=== PATIENT | female | born 1995 ===

== ENCOUNTER 2016-12-22 18:25 | Inpatient (IN) | payer OTHER ==
[2016-12-22] MEDS ORDERED: OXYTOCIN/RINGERS LACTATE 1,000 ML IV PRN (18:57)
[2016-12-22] MEDS ORDERED: TERBUTALINE SULFATE 1 MG/ML VIAL IV PRN (18:57)
[2016-12-22] MEDS ORDERED: LR 1,000 ML IV PRN (18:57)
[2016-12-22 19:32] LABS: % IMMATURE GRANULYOCYTES 0.8 % (0.0-1.1); ABSOLUTE IMMATURE GRANULOCYTES 0.14 10^3/uL (0.00-0.10); ADD DIFF? NO; ADD MORPH? NO; ADD SCAN? NO; ATYPICAL LYMPHOCYTE FLAG 10 (0-99); FRAGMENT RBC FLAG 0 (0-99); HEMATOCRIT 41.5 % (38.0-47.0); HEMOGLOBIN 14.5 g/dL (12.6-16.3); LEFT SHIFT FLG 0 (0-99); LIPEMIA HEMOLYSIS FLAG 90 (0-99); MEAN CELL HEMOGLOBIN 31.1 pg (27.9-34.1); MEAN CELL HEMOGLOBIN CONCENTR. 34.9 g/dL (32.4-36.7); MEAN CELL VOLUME 89.1 fL (81.5-99.8); MEAN PLATELET VOLUME 9.9 fL (8.7-11.7); PLATELET CLUMPS FLAG 0 (0-99); PLATELET COUNT 205 10^3/uL (150-400); RED BLOOD CELL COUNT 4.66 10^6/uL (4.18-5.33); RED CELL DISTRIBUTION WIDTH 13.4 % (11.5-15.2)
[2016-12-22] MEDS ORDERED: AMMONIA AROMATIC 1 EACH AMP IH ONE (20:09)
[2016-12-22] MEDS ORDERED: LIDOCAINE 1% 30 ML SDV ONE (20:09)
[2016-12-22] MEDS ORDERED: TERBUTALINE SULFATE 1 MG/ML VIAL ONE (20:09)
[2016-12-22] MEDS ORDERED: OXYTOCIN 10 UNIT/ML VIAL ONE (20:09)
[2016-12-22] MEDS ORDERED: MISOPROSTOL 200 MCG TAB ONE (20:10)
[2016-12-22] MEDS ORDERED: HYDROCODONE/APAP 5/325 TAB PO PRN (21:45)
[2016-12-22] MEDS ORDERED: HYDROCORTISONE 0.5% CREAM TP PRN (21:45)
[2016-12-22] MEDS ORDERED: SIMETHICONE 80 MG TAB CHEW PO PRN (21:45)
--- NOTE | 2016-12-22 21:49 | OBPROC ---
- Labor and Delivery Onset of Contractions Date: 12/22/16 Onset of Contractions Time: 16:00 Onset of Contractions Type: Spontaneous Rupture of Membranes Date: 12/22/16 Rupture of Membranes Time: 21:10 Rupture of Membranes Type: Artificial Amniotic Fluid Color: Clear Dilation Complete Time: 21:10 Delivery Type: Spontaneous Placenta Delivery Date: 12/22/16 Placenta Delivery Time: 21:30 Episiotomy/Laceration: Midline Repair: 3-0, Vicryl (under local - 1% Lidocaine) EBL: 350 cc Complications: Shoulder Dystocia (Mild; less than 1 min; relieved with McRobert' s maneuver and suprapubic pressure) - Medications Labor Augmentation/Induction Meds Used: None Anesthesia: Local (Specify) (1% Lidocaine) - [place] Info Infant A Delivery Date: 12/22/16 Delivery Time: 21:20 Sex of Infant: Female Score (1 Min): 8 Score (5 Min): 9
[2016-12-22] MEDS: IBUPROFEN 600 MG TAB PO PRN (21:50)
--- NOTE | 2016-12-22 22:31 | GHP ---
DATE OF ADMISSION: 12/22/2016 ADMITTING DIAGNOSES: 1. Intrauterine at 39 weeks. 2. Active labor. HISTORY OF PRESENT ILLNESS: Patient is a 21-year-old, 2, para 1-0-0-1 at 39 weeks who presented today in the office for a routine visit. She was josef every 10-15 minutes, was found to be 4-5 cm dilated with a bulging bag. She then presented to L&D later this evening with contractions closer every 5 minutes in active labor at 7 cm. Pt presented to [facility] as a late transfer at 35 weeks. ISADORA is 12/29/2016 by last menstrual period 03/24/2016 confirmed by first-trimester ultrasound. The patient did have a history of bleeding in the 1st trimester, and did receive RhoGAM at 14 weeks and at 28 weeks. The patient did accept Trio screen and it was negative. Patient did receive Tdap during the . GBS culture negative. The patient is anemic takes iron. Has a history of depression and anxiety on no medications. PAST OB HISTORY: 2014 delivered a viable male infant at 39 weeks via vaginal delivery, weighing 6 pounds 10 ounces. The patient was induced. No complications. UPTWISTER TENDER HISTORY: Age of menarche 12. Cycles are regular every 28 days lasting for 6 days. Last menstrual period 03/24/2016. Had a positive test early April 2016. The patient denies a history of abnormal Pap smears or any exposure to sexually transmitted diseases. PAST MEDICAL HISTORY: Anxiety, depression have not had any issues for the past 4 years. PAST SURGICAL HISTORY: [place] teeth extraction 2010, gallbladder removal in 2014. MEDICATIONS: Include vitamins. ALLERGIES: Patient has no known drug allergies. FAMILY HISTORY: Noncontributory. LABS: Patient is O negative, antibody negative. Did receive RhoGAM at 14 weeks and at 28 weeks. HIV negative. Hepatitis B surface antigen negative, RPR nonreactive, rubella immune. Hematocrit in the 3rd trimester was 35. GBS is negative. Trio screen was negative. PHYSICAL EXAMINATION: GENERAL APPEARANCE: The patient is a well-nourished, well-developed female, alert and oriented x3. Mild distress secondary to contractions. CARDIOVASCULAR: Regular rate and rhythm. LUNGS: Clear to auscultation. ABDOMEN: Gravid, soft, nontender. EXTREMITIES: Normal to inspection without calf tenderness or edema. PELVIC: She was found to be 7 cm and bulging. [place] is category 1 strip. baseline 140 beats per minute. Positive accelerations. No decelerations. Moderate variability. ASSESSMENT: Patient is a 21-year-old, 2, para 1-0-0-1 at 39 weeks with an estimated due date 12/29/2016 who presents in active labor. PLAN: 1. Admit to Labor and Delivery for expectant management. 2. GBS is negative. No prophylactic antibiotics needed. 3. Anticipate normal vaginal delivery. /[id number]/MODL MTDD
[2016-12-22 23:06] LABS: ABSOLUTE IMMATURE GRANULOCYTES 0.19 10^3/uL (0.00-0.10); ADD DIFF? NO; ADD MORPH? NO; ADD SCAN? NO; ATYPICAL LYMPHOCYTE FLAG 0 (0-99); FRAGMENT RBC FLAG 0 (0-99); HEMATOCRIT 40.1 % (38.0-47.0); LEFT SHIFT FLG 0 (0-99); LIPEMIA HEMOLYSIS FLAG 90 (0-99); MEAN CELL HEMOGLOBIN CONCENTR. 34.9 g/dL (32.4-36.7); MEAN CELL VOLUME 88.9 fL (81.5-99.8); MEAN PLATELET VOLUME 10.4 fL (8.7-11.7); PLATELET CLUMPS FLAG 10 (0-99); PLATELET COUNT 177 10^3/uL (150-400); RED BLOOD CELL COUNT 4.51 10^6/uL (4.18-5.33); RED CELL DISTRIBUTION WIDTH 13.3 % (11.5-15.2)
[2016-12-22 23:16] LABS: ALANINE AMINOTRANSFERASE 28 IU/L (9-52); ASPARTATE AMINOTRANSFERASE 27 IU/L (14-46); BILIRUBIN,TOTAL 0.4 mg/dL (0.1-1.4); BILIRUBIN-CONJUGATED 0.2 mg/dL (0.0-0.5); BILIRUBIN-UNCONJUGATED 0.2 mg/dL (0.0-1.1); CREATININE 0.7 mg/dL (0.6-1.0); GLOMERULAR FILTRATION RATE > 60; LACTATE DEHYDROGENASE 520 IU/L (313-618); URIC ACID 4.2 mg/dL (2.5-6.8)
[2016-12-23] MEDS: IBUPROFEN 600 MG TAB PO PRN ×4 (03:41→22:06)
[2016-12-23] MEDS: DOCUSATE SODIUM 100 MG CAP PO PRN ×2 (09:56→22:06)
--- NOTE | 2016-12-23 17:41 | SOAPPROG ---
SOAP Progress Note Assessment/Plan: Assessment: pod# 1 s/p breast feeding uncomplicated post course rh negative Plan: routine post care rhogam if indicated 12/23/16 17:40 Subjective: patient is doing great! pain is well controlled. normal lochia. breast feeding is going well. denies headache and changes in vision. no issues. Objective: Vital Signs Temp Pulse Resp BP Pulse Ox 36.8 C 70 16 118/74 96 12/23/16 08:45 12/23/16 08:45 12/23/16 08:45 12/23/16 08:45 12/23/16 08:45 Laboratory Results 12/22/16 21:17 12/22/16 21:17 12/22/16 12/23/16 12/24/16 05:59 05:59 05:59 Output Total 350 Balance -350 Physical Exam - Physical Exam General Appearance: WD/WN, alert, no apparent distress Neck: non-tender, full range of motion Respiratory: chest non-tender, lungs clear, normal breath sounds Cardiac/Chest: normal peripheral pulses, regular rate, rhythm Abdomen: normal bowel sounds, non-tender, soft, other (fundus firm and non tender) Skin: normal color, warm/dry Extremities: normal range of motion, non-tender, normal inspection, normal capillary refill Neuro/Psych: no motor/sensory deficits, alert, normal mood/affect, oriented x 3 ICD10 Worksheet Patient Problems: Problems Problem Status Onset Delivery normal Acute
[2016-12-24] MEDS: IBUPROFEN 600 MG TAB PO PRN ×2 (04:21→10:38)
--- NOTE | 2016-12-24 09:41 | SOAPPROG ---
SOAP Progress Note Assessment/Plan: Assessment: cat 1 fhr pain well managed perineum intact ff@u scant rubra lochia Plan:discharge to home with instructions depression, pain management, ss infection, pericare, rest, , fu care 6 weeks, contraception verbalized understanding of all of the above 12/24/16 09:39 Subjective: Denies pain or difficulties. well. Objective: Vital Signs Temp Pulse Resp BP Pulse Ox 36.6 C 81 18 114/66 97 12/23/16 20:00 12/23/16 20:00 12/23/16 20:00 12/23/16 20:00 12/23/16 20:00 Laboratory Results 12/22/16 21:17 12/22/16 21:17 12/23/16 12/24/16 12/25/16 05:59 05:59 05:59 Output Total 350 Balance -350 - Time Spent With Patient Time Spent With Patient: 15 minutes - Pending Discharge Pending Discharge Date: 12/24/16 Pending Discharge Time: 11:00 ICD10 Worksheet Patient Problems: Problems Problem Status Onset Delivery normal Acute
--- NOTE | 2016-12-24 09:48 | SOAPPROG ---
SOAP Progress Note Assessment/Plan: Assessment: cat 1 fhr pain well managed perineum intact ff@u scant rubra lochia Plan:discharge to home with instructions depression, pain management, ss infection, pericare, rest, , fu care 6 weeks, contraception verbalized understanding of all of the above 12/24/16 09:39 Objective: Vital Signs Temp Pulse Resp BP Pulse Ox 36.6 C 81 18 114/66 97 12/23/16 20:00 12/23/16 20:00 12/23/16 20:00 12/23/16 20:00 12/23/16 20:00 Laboratory Results 12/22/16 21:17 12/22/16 21:17 12/23/16 12/24/16 12/25/16 05:59 05:59 05:59 Output Total 350 Balance -350 Physical Exam - Physical Exam General Appearance: WD/WN, alert, no apparent distress Abdomen: other (FF@U) Pelvic Exam: vaginal bleeding (SCANT RUBRA LOCHIA) Skin: normal color, warm/dry Extremities: normal range of motion, Lulu's sign (NEGATIVE BILATERally / dtrs 1 + bilaterally no clonus) Neuro/Psych: no motor/sensory deficits, alert, normal mood/affect, oriented x 3 ICD10 Worksheet Patient Problems: Problems Problem Status Onset term delivery Acute - ICD10 Problem Qualifiers (1) Delivery normal
[2016-12-24] MEDS: DOCUSATE SODIUM 100 MG CAP PO PRN (10:38)
[2016-12-24 11:07] VITALS: BP 107/72; PULSE 95; RESP 16; TEMP 97.6; O2SAT 95
== END 2016-12-24 11:00 | disposition home or self-care (01) | DRG 775 ==
LOC: FLD 18:25 → FOB 23:35
PROVIDERS: ADMIT Obstetrics & Gynecology; ATTEND Obstetrics & Gynecology
PROC: 0UQG7ZZ Repair Vagina, Via Natural or Artificial Opening (ICD-10-PCS; principal; 2016-12-22)
PROC: 10E0XZZ Delivery of Products of Conception, External Approach (ICD-10-PCS; principal; 2016-12-22)
PROC: 10907ZC Drainage of Amniotic Fluid, Therapeutic from Products of Conception, Via Natural or Artificial Opening (ICD-10-PCS; 2016-12-22)
DX: O66.0 Obstructed labor due to shoulder dystocia (principal); O71.4 Obstetric high vaginal laceration alone; Z3A.39 39 weeks gestation of pregnancy; Z37.0 Single live birth
CPT/HCPCS: J3105